=== PATIENT | male | born 1965 | race Caucasian/White ===

== ENCOUNTER 2017-03-05 14:05 | Emergency (ER) | payer OTHER ==
[2017-03-05 14:09] VITALS: BP 135/91; PULSE 97; TEMP 98; BMI 30.3
--- NOTE | 2017-03-05 14:20 | PDOC ---
History of Present Illness - General Chief Complaint: Injury Stated Complaint: [employer] FALL/ PAIN Time Seen by Provider: 03/05/17 14:10 History Source: Patient Exam Limitations: No Limitations - History of Present Illness Initial Comments: 03/05/17 14:15 CHIEF COMPLAINT: Slip and fall on the wet floor in the building at work. HISTORY OF PRESENT ILLNESS: Patient is a [51] -year-old [male ] [employer] was walking in the building and slipped on a wet floor, right leg slipped, hyperextending hip and knee fell to the floor. There is good range of motion to hip however pain to right anterior hip. Patient able to ambulate without a limp, pain with range of motion. She denies any other injury, denies hitting his head. PMH: [Hip replacement, Vytorin for high cholesterol] ALLERGIES: [None] PCP: [Dr. Schneider, Ortho] REVIEW OF SYSTEMS: GENERAL/CONSTITUTIONAL: Awake alert and oriented HEAD, EYES, EARS, NOSE AND THROAT: No change in vision. No facial edema, no bruising. NO active bleeding. Nares intact. RESPIRATORY: No cough, wheezing, or hemoptysis. CARDIAC: Denies chest pain, no shortness of breathe. MUSCULOSKELETAL: No spinal point tenderness, Good ROM to all four extremities. NO CVA tenderness. [no] lateral neck pain. Pain to right anterior hip with flexion. GI/: Denies abdominal pain, no nausea or vomiting, no bloody stool, no Hematuria. SKIN : No erythema or bruising noted. No abrasion or lacerations. NEUROLOGIC: No loss of consciousness, no numbness or tingling. PHYSICAL EXAM: GENERAL: Awake and alert and oriented x3. EYES: The pupils are equal, round, and reactive to light, with clear, conjunctiva. Good extraocular movement. No nystagmus NOSE: No nasal trauma . Midface stable MOUTH: Teeth intact. EARS: The ear canals and tympanic membranes are normal without trauma. No drainage. NECK: No Lower cervical C-spine tenderness, no pain with chin to chest. CHEST: The lungs are clear without crackles, or wheezes. No subcutaneous emphysema. No crepitus. HEART: Heart is regular rhythm, with normal S1 and S2, no murmurs. ABDOMEN: The abdomen is soft and nontender with normal bowel sounds. There is no guarding or rebound. MUSCULOSKELETAL: No spinal point tenderness. No bruising or erythema. Pelvis stable, pain is only reproducible and mild to right anterior hip. EXTREMITIES: Extremities are normal. No visible traumatic injury. NEUROLOGICAL:Mental status: The patient is oriented x3. No Generalized headache , Romberg [-] SKIN: Without edema, erythema or bruising. No abrasions or lacerations. 03/05/17 14:23 Past History - Past Medical History Allergies/Adverse Reactions: Allergies Allergy/AdvReac Type Severity Reaction Status Date / Time No Known Allergies Allergy Verified 03/05/17 14:06 Home Medications: Ambulatory Orders Oxycodone HCl/Acetaminophen [Percocet 5/325 -] 1 - 2 tab PO Q6H PRN #12 tab 06/04 COPD: No Hypercholesterolemia: Yes - Suicide/Smoking/Psychosocial Hx Smoking Status: No Smoking History: Never smoked Have you smoked in the past 12 months: No Number of Cigarettes Smoked Daily: 0 Information on smoking cessation initiated: No Hx Alcohol Use: No Drug/Substance Use Hx: No Substance Use Type: None Hx Substance Use Treatment: No *Physical Exam - Vital Signs Last Vital Signs Temp Pulse Resp BP Pulse Ox 98.0 F 97 H 18 135/91 100 03/05/17 14:07 03/05/17 14:07 03/05/17 14:07 03/05/17 14:07 03/05/17 14:07 Medical Decision Making - Medical Decision Making 03/05/17 14:27 A/P: Patient here for evaluation of right hip after foot slipped on the floor and he hyperextended his leg, pain only to anterior hip, able to ambulate without difficulty. Patient with mild pain we'll defer x-rays at this time, patient will follow-up with his orthopedist. Denies any knee pain, no other further injury. *DC/Admit/Observation/Transfer Diagnosis at time of Disposition: Accidental fall Qualifiers: Encounter type: initial encounter Qualified Code(s): W19.XXXA - Unspecified fall, initial encounter Hip injury Qualifiers: Encounter type: initial encounter Laterality: right Qualified Code(s): S79.911A - Unspecified injury of right hip, initial encounter - Discharge Dispostion Disposition: HOME Condition at time of disposition: Good - Referrals Referrals: Wyatt,Yifan F [Non Staff, Medical] - - Patient Instructions Additional Instructions: Please follow up with Dr. Schneider for evaluation if pain persists. - Post Discharge Activity Forms/Work/School Notes: Back to Work
== END 2017-03-05 14:25 | disposition home or self-care (01) ==
LOC: JERFT 14:05
DX: S79.911A Unspecified injury of right hip, initial encounter (principal); W18.39XA Other fall on same level, initial encounter; Y35.91XA Legal intervention, means unspecified, law enforcement official injured, initial encounter; Y93.89 Activity, other specified; Y92.9 Unspecified place or not applicable; W01.0XXA Fall on same level from slipping, tripping and stumbling without subsequent striking against object, initial encounter
CPT/HCPCS: 99281-25